=== PATIENT | female | born 2000 | race African-American/Black ===

== ENCOUNTER 2024-04-02 10:43 | Emergency (ER) | payer MEDICAID ==
[~2024-04-02] VITALS: Ht 175.3 cm; Wt 73.0 kg
[2024-04-02 10:46] VITALS: O2SAT 100
[2024-04-02 10:52] VITALS: BP 101/65; PULSE 78; RESP 14; TEMP 98.1; O2SAT 96
[2024-04-02 12:06] LABS: BASOPHILS % 0.4 % (0.0-2.0); EOSINOPHILS % 0.8 % (0.0-5.0); HEMATOCRIT. 38.4 % (36.0-48.0); HEMOGLOBIN. 12.4 g/dL (12.0-16.0); MEAN CORPUSCULAR HEMOGLOBIN 29.8 pg (28.0-32.0); MEAN CORPUSCULAR HGB CONC 32.4 g/dL (31.0-37.0); MEAN PLATELET VOLUME 7.2 fl (7.4-10.4); MONOCYTES % 7.3 % (2.0-8.0); NEUTROPHILS % 69.5 % (40.0-76.0); PLATELET 286 x1000/uL (130-400); RED BLOOD CELL COUNT 4.18 mill/uL (4.2-5.4); WHITE BLOOD COUNT 9.4 x1000/uL (4.5-11.0)
[2024-04-02 12:10] LABS: CHLORIDE 106 mEq/L (98-107); SODIUM 134 mEq/L (136-145)
[2024-04-02 12:11] LABS: CALCIUM 9.9 mg/dL (8.7-10.4); CARBON DIOXIDE 23 mEq/L (21-32)
[2024-04-02 12:16] LABS: CREATININE 0.5 mg/dL (0.6-1.0); GLUCOSE 86 mg/dL (70-105)
[2024-04-02 12:28] LABS: CLARITY URINE SL HAZY (CLEAR); COLOR URINE YELLOW (YELLOW)
[2024-04-02 12:29] LABS: GLUCOSE URINE NEGATIVE (NEGATIVE); KETONES URINE NEGATIVE (NEGATIVE); LEUKOCYTE ESTERASE URINE 1+ (NEGATIVE); NITRITE URINE NEGATIVE (NEGATIVE); OCCULT BLOOD URINE NEGATIVE (NEGATIVE); PH URINE 7.5 (4.5-8.0); PROTEIN URINE NEGATIVE (NEGATIVE); UROBILINOGEN URINE 0.2 E.U./dL (0.2-1.0)
[2024-04-02 12:47] LABS: B-HCG QUANTITATIVE 48725 mIU/mL (<3); UREA NITROGEN BLOOD < 5 mg/dL (9-23)
[2024-04-02 12:59] LABS: BACTERIA URINE 2+; SQUAMOUS EPITHELIAL CELL URINE 3+ /lpf (RARE/1+); WBC URINE 25-50 /hpf (0-2); YEAST URINE NONE SEEN
[2024-04-02] MEDS ORDERED: NITR-87 MT (15:02)
== END 2024-04-02 17:44 | disposition home or self-care (01) ==
LOC: ER 10:43
DX: Z34.92 Encounter for supervision of normal pregnancy, unspecified, second trimester (principal); Z3A.14 14 weeks gestation of pregnancy
CPT/HCPCS: 36415; 76805; 80048; 81003; 81025; 84702; 85025; 86850; 86900; 99284